=== PATIENT | female | born 1995 | race Caucasian/White ===

== ENCOUNTER 2018-11-30 16:15 | Emergency (ER) | payer BC ==
[2018-11-30] MEDS ORDERED: CYCLOBENZAPRINE 10 MG TAB PO ONE (17:21)
[2018-11-30] MEDS ORDERED: LIDOCAINE 4%/MENTHOL 1% PATCH TD ONE (17:21)
--- NOTE | 2018-11-30 17:24 | EDPHY ---
H & P Stated Complaint: low back pain difficulty walking x 1 week worse today denies injury - Personal History LMP (Females 10-55): 1-7 Days Ago - Medical/Surgical History Hx Asthma: No Hx Chronic Respiratory Disease: No Hx Diabetes: No Hx Cardiac Disease: No Hx Renal Disease: No Hx Cirrhosis: No Hx Alcoholism: No Hx HIV/AIDS: No Hx Splenectomy or Spleen Trauma: No Other PMH: back pain - Social History Smoking Status: Never smoked Time Seen by Provider: 11/30/18 17:02 HPI/ROS: CHIEF COMPLAINT: Acute low back pain HISTORY OF PRESENT ILLNESS: 23-year-old female history of recurrent low back pain visiting from [place] complaining of lumbar spasm with no radiculopathy since this morning. No trauma no fall. . No incontinence or retention. No saddle anesthesia. No chest pain. No dyspnea. No foot drop. No abdominal pain. PRIMARY CARE PROVIDER: In [place] REVIEW OF SYSTEMS: A ten point review of systems was performed and is negative with the exception of the items mentioned in the HPI PAST MEDICAL & SURGICAL HISTORY: history of recurrent intermittent low back pain SOCIAL HISTORY:Nonsmoker no IV drug use. Visiting from [place] PHYSICAL EXAM (Prior to examination, patient consented to physical exam, hands were washed and my usual and customary physical exam procedures followed) 1) GENERAL: Well-developed, well-nourished, alert and oriented. Appears appears uncomfortable when she is asked to move. Appears nontoxic 2) HEAD: Normocephalic, atraumatic 3) HEENT: Pupils equal, round, reactive to light bilaterally. Sclera anicteric. Nasopharynx, oropharynx, clear, no lesions. 4) NECK: Full range of motion, no meningeal signs. 5) LUNGS: Clear auscultation bilaterally, no wheezes, no rhonchi, no retractions. 6) HEART: Regular rate and rhythm, no murmur, no heave, no gallop. 7) ABDOMEN: No guarding, no rebound, no focal tenderness, negative McBurney's, negative Marcelo's, negative Rovsing's, negative peritoneal sign, 8) MUSCULOSKELETAL: Moving all extremities, no focal areas of tenderness, no obvious trauma. No peripheral edema or discoloration. 9) BACK: tender to palpation paraspinous lumbar muscle. No CVA tenderness, no midline vertebral tenderness, no fluctuance, no step-off, no obvious trauma, no visual or palpable abnormality. Patella, Achilles reflexes intact to bilateral strength 5/5 10) SKIN: No rash, no petechiae. 11) NEURO: Awake, alert, and oriented to person, place and time. Answers questions appropriately. There were no obvious focal neurologic abnormalities. No cerebellar dysfunction. Normal steady gait. Upper and lower extremities bilaterally with strength 5 / 5, reflexes 2+.. DIFFERENTIAL DIAGNOSIS: In no particular order, including but not limited to, fracture, sprain/strain, cauda equina, spinal infectious etiology. MEDICAL DECISION MAKING Lower index of suspicion for cauda equina, epidural abscess, epidural hematoma, lumbar myositis, diskitis, as the patient is neurologically intact in the lower extremities, has patella and Achilles reflexes intact and equal bilaterally, has no neurologic deficits, no incontinence, no retention, no midline pain, no fluctuance, afebrile, no flulike symptoms. Pain may be secondary to muscular strain, may be secondary to discogenic etiology. At this point I do not identify definitive indication for emergent MRI, however patient may necessitate this on an outpatient basis. Patient given acute back pain precautions. Patient verbalizes understanding of discharge instructions. I believe her to be a competent decision-makers. She will need follow-up with her primary care provider in [place]. She will be discharged with Lidoderm, Flexeril, Medrol Dosepak. She notes no history of adverse reaction to steroids in the past. All questions and concerns have been addressed by me. Ample opportunity for questions have been provided . The patient understands that this diagnosis is provisional and can never be 100% accurate. Usual and customary warnings were given concerning the clinical impression and all the patient's questions were answered. The patient was instructed to return to the emergency department should her symptoms worsen or return, or develop any new symptoms, otherwise to followup as directed in discharge instructions. (Zachary Robin) The patient was evaluated and managed by the physician retirement assistant. I have reviewed this chart and I agree with the findings and plan of care as documented , as indicated by my signature. I am the secondary supervising physician. ( Vicenta Gonzales) Constitutional: Initial Vital Signs Temperature (C) 36.6 C 11/30/18 16:18 Heart Rate 100 11/30/18 16:18 Respiratory Rate 16 11/30/18 16:18 Blood Pressure 118/69 11/30/18 16:18 O2 Sat (%) 98 11/30/18 16:18 O2 Delivery Mode Room Air Allergies/Adverse Reactions: No Known Allergies Allergy (Unverified 11/30/18 16:22) Home Medications: Medication Instructions Recorded Control 11/30/18 Cyclobenzaprine [Flexeril 10 MG 10 mg PO TID #15 tab 11/30/18 (RX)] Lidocaine [Lidoderm] 1 each TP BID #30 adh..patch 11/30/18 methylPREDNISolone [Medrol Dose 4 mg PO DAILY #1 ea 11/30/18 Fortino] - Data Points Medications Given: Discontinued Medications Cyclobenzaprine HCl (Flexeril) 10 mg PO EDNOW ONE Stop: 11/30/18 17:22 Last Admin: 11/30/18 17:35 Dose: 10 mg Miscellaneous Medication (Icy Hot Lidocaine/Menthol 4%/1% Patch) 1 patch TD EDNOW ONE Stop: 11/30/18 17:22 Last Admin: 11/30/18 17:35 Dose: 1 patch Departure - Departure Disposition: Home, Routine, Self-Care Clinical Impression: Low back pain Condition: Good Instructions: Acute Low Back Pain (ED) Additional Instructions: Seek medical attention if you develop new or worsening pain, if you develop bladder or bowel dysfunction, numbness around your perineum, foot drop, or any other symptoms that concern you. Referrals: Follow-up, your primary care provider in [place] this wk [Other] - As per Instructions NONE *PRIMARY CARE P,. [Primary Care Provider] - As per Instructions Juvencio Conrad MD [Medical Doctor] - 2-3 days, call for appt. Prescriptions: Cyclobenzaprine [Flexeril 10 MG (RX)] 10 mg PO TID #15 tab Lidocaine [Lidoderm] 1 each TP BID #30 adh..patch methylPREDNISolone [Medrol Dose Fortino] 4 mg PO DAILY #1 ea
[2018-11-30 18:19] VITALS: BP 120/71
[2018-11-30] MEDS ORDERED: PATCH REMOVAL 1 EA PATCH TD SCH (21:00)
== END 2018-11-30 18:19 | disposition home or self-care (01) ==
DX: M54.5 Low back pain (principal)